=== PATIENT | male | born 1970 | race Caucasian/White ===

== ENCOUNTER 2025-08-25 18:27 | Emergency (ER) | payer SELFPAY ==
[2025-08-25 19:10] LABS: #Basophils 0.03 10x3/uL (0.0-0.2); #Eosinophils 0.10 10x3/uL (0.0-0.5); #Monocytes 0.61 10x3/uL (0.0-1.1); #Neutrophils 4.20 10x3/uL (1.5-8.4); %Basophils 0.4 % (0.0-2.0); %Eosinophils 1.3 % (0.0-6.0); %Lymphocytes 35.8 % (18.0-47.0); %Monocytes 7.9 % (0.0-10.0); %Neutrophils 54.3 % (40.0-75.0); Hematocrit 42.6 % (38.8-50.0); Hemoglobin 14.4 g/dL (13.5-17.5); Mean Corpuscular Hemoglobin 31.4 pg (27.0-33.0); Mean Corpuscular Volume 93.0 fL (81.2-95.1); Platelet Count 241 10x3/uL (150-450); Red Blood Cell (RBC) Count 4.58 10x6/uL (4.32-5.72); White Blood Cell (WBC) Count 7.72 10x3/uL (3.5-10.5)
[2025-08-25 19:26] LABS: ALT (SGPT) 10 U/L (Less than 45); AST (SGOT) 19 U/L (11-34); Albumin 4.9 g/dL (3.1-4.5); Alkaline Phosphatase 66 U/L (40-110); Anion Gap 15 mmol/L (10-20); BUN (Urea Nitrogen) 12 mg/dL (8.4-25.7); Bilirubin, Total 0.3 mg/dL (0.3-1.2); Calc. Creatinine Clearance 0 mL/min (70-130); Calcium 9.7 mg/dL (7.8-10.44); Carbon Dioxide 25 mmol/L (22-29); Chloride 106 mmol/L (98-107); Globulin 3.4 g/dL (2.4-3.5); Glucose 84 mg/dL (70-105); Lipase 26 U/L (8-78); Magnesium 2.2 mg/dL (1.6-2.6); Potassium 3.8 mmol/L (3.5-5.1); Sodium 142 mmol/L (136-145)
[2025-08-25 19:33] LABS: Troponin I Less than 0.010 ng/mL (< 0.028)
[2025-08-25] MEDS ORDERED: Aspirin Chewable 81 MG TAB ONE (19:45)
[2025-08-25] MEDS ORDERED: Nitroglycerin 0.4 MG TAB 1 EACH ONE (19:46)
[2025-08-25 22:26] LABS: Troponin I Less than 0.010 ng/mL (< 0.028)
[2025-08-25] MEDS ORDERED: Ketorolac Tromethamine 30 MG (1 mL) VIAL ONE (22:38)
== END 2025-08-25 22:45 | disposition home or self-care (01) ==
LOC: CSHERS 18:27
DX: R07.2 Precordial pain (principal); F17.210 Nicotine dependence, cigarettes, uncomplicated
CPT/HCPCS: 36415; 71045; 80053; 83690; 83735; 83880; 84484; 85025; 93005; 96374; J1885